=== PATIENT | male | born 1980 | race Caucasian/White ===

== ENCOUNTER 2025-05-07 05:00 | Emergency (ER) | payer OTHER ==
[2025-05-07] MEDS ORDERED: Ondansetron PF 4 MG/2 ML Vial ONE (05:34)
[2025-05-07] MEDS ORDERED: Ketorolac Tromethamine 30 MG (1 mL) VIAL ONE (05:34)
[2025-05-07 06:11] LABS: #Basophils 0.03 10x3/uL (0.0-0.2); #Eosinophils 0.51 10x3/uL (0.0-0.7); #Monocytes 0.83 10x3/uL (0.11-0.59); #Neutrophils 5.21 10x3/uL (1.40-6.50); %Basophils 0.4 % (0.0-1.0); %Eosinophils 6.3 % (0.0-10.0); %Lymphocytes 18.4 % (21.0-51.0); %Monocytes 10.2 % (0.0-10.0); %Neutrophils 64.3 % (42.0-75.0); Hematocrit 51.1 % (42.0-52.0); Hemoglobin 18.1 g/dL (14.0-18.0); Mean Corpuscular Hemoglobin 31.4 pg (27.0-31.0); Mean Corpuscular Volume 88.6 fL (78.0-98.0); Platelet Count 172 10x3/uL (130-400); Red Blood Cell (RBC) Count 5.77 mill/uL (4.70-6.10); White Blood Cell (WBC) Count 8.10 10x3/uL (4.8-10.8)
[2025-05-07 06:17] LABS: Bacteria/HPF None Seen HPF (None Seen); CAUTI Indications for Culture Pelvic or flank pain; Glucose, Urine (Dipstick) 70 mg/dL (Negative); Leukocyte Negative Leu/uL (Negative); Protein, Urine (Dipstick) Negative (Neg-Trace); RBC/HPF None Seen HPF (0-3); Specific Gravity, Urine 1.020 (1.002-1.036); WBC/HPF 0-3 HPF (0-3)
[2025-05-07 06:28] LABS: Urine Culture Reflex No No
[2025-05-07 06:35] LABS: ALT (SGPT) 94 U/L (Less than 45); AST (SGOT) 51 U/L (11-34); Albumin 4.5 g/dL (3.1-4.5); Alkaline Phosphatase 78 U/L (40-110); Anion Gap 15 mmol/L (10-20); BUN (Urea Nitrogen) 14 mg/dL (8.9-20.6); Bilirubin, Total 1.1 mg/dL (0.3-1.2); Calc. Creatinine Clearance 0 mL/min (70-130); Calcium 9.1 mg/dL (7.8-10.44); Carbon Dioxide 18 mmol/L (22-29); Chloride 112 mmol/L (98-107); Globulin 3.0 g/dL (2.4-3.5); Glucose 97 mg/dL (70-105); Potassium 4.3 mmol/L (3.5-5.1); Sodium 141 mmol/L (136-145)
== END 2025-05-07 07:05 | disposition home or self-care (01) ==
LOC: ERS 05:00
DX: R10.9 Unspecified abdominal pain (principal)
CPT/HCPCS: 74176; 80053; 81001; 85025; 96374; J1885; J2270; J2405